=== PATIENT | female | born 1970 | race Caucasian/White ===

== ENCOUNTER 2017-04-20 10:37 | Emergency (ER) | payer SELFPAY ==
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
--- NOTE | 2017-04-20 11:55 | RADIOLOGY REPORT (SQ) ---
EXAM DESCRIPTION: WRIST RIGHT 3 VIEWS COMPLETED DATE/TIME: 04/20/2017 11:45 am REASON FOR STUDY: twist injury COMPARISON: None. NUMBER OF VIEWS: Three views. TECHNIQUE: AP, lateral, and oblique radiographic images acquired of the right wrist. LIMITATIONS: None. FINDINGS: MINERALIZATION: Normal. BONES: No acute fracture or dislocation. No worrisome bone lesions. Normal alignment. SOFT TISSUES: No soft tissue swelling. No foreign body. OTHER: No other significant finding. IMPRESSION: NEGATIVE STUDY OF THE RIGHT WRIST. NO RADIOGRAPHIC EVIDENCE OF ACUTE INJURY. TECHNICAL DOCUMENTATION: JOB ID: [id number] [employer]- All Rights Reserved
--- NOTE | 2017-04-20 11:58 | RADIOLOGY REPORT (SQ) ---
EXAM DESCRIPTION: L SPINE WHOLE COMPLETED DATE/TIME: 04/20/2017 11:45 am REASON FOR STUDY: lumbar pain, fell COMPARISON: November 2014 NUMBER OF VIEWS: Five views including obliques. TECHNIQUE: AP, lateral, oblique, and sacral radiographic images acquired of the lumbar spine. LIMITATIONS: None. FINDINGS: MINERALIZATION: Normal. SEGMENTATION: Normal. No transitional anatomy. ALIGNMENT: Normal. VERTEBRAE: Maintained height. No fracture or worrisome bone lesion. DISCS: Preserved height. No significant osteophytes or end plate irregularity. POSTERIOR ELEMENTS: Pedicles and facets are intact. No pars defect or posterior arch defects. HARDWARE: None in the spine. PARASPINAL SOFT TISSUES: Normal. PELVIS: Intact as visualized. No fractures or worrisome bone lesions. SI joints intact. OTHER: Calcific densities are identified projected over the left renal contour which have the appeara nce of renal calculi. Surgical clips are identified in the right upper quadrant. IMPRESSION: NORMAL 5 VIEW LUMBAR SPINE. TECHNICAL DOCUMENTATION: JOB ID: [id number] [employer]- All Rights Reserved
[2017-04-20] MEDS ORDERED: IBUPROFEN 800 MG TABLET PO ONE (12:45)
[2017-04-20 13:08] VITALS: BP 109/72
== END 2017-04-20 13:08 | disposition home or self-care (01) ==
LOC: ER 10:37
DX: S63.509A Unspecified sprain of unspecified wrist, initial encounter (principal); X58.XXXA Exposure to other specified factors, initial encounter; M67.431 Ganglion, right wrist; G89.29 Other chronic pain; M54.5 Low back pain; R20.2 Paresthesia of skin; M25.531 Pain in right wrist; F17.200 Nicotine dependence, unspecified, uncomplicated
CPT/HCPCS: 99283; 72110; 73110; L3908

== ENCOUNTER 2017-08-08 12:43 | Emergency (ER) | payer OTHER ==
[2017-08-08 13:26] VITALS: BP 115/72
[2017-08-08] MEDS ORDERED: CYCLOBENZAPRINE HCL 10 MG TABLET PO ONE (14:37)
[2017-08-08] MEDS ORDERED: IBUPROFEN 800 MG TABLET PO ONE (14:37)
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
== END 2017-08-08 14:44 | disposition home or self-care (01) ==
LOC: ER 12:43
DX: M54.2 Cervicalgia (principal); M54.5 Low back pain; F17.200 Nicotine dependence, unspecified, uncomplicated; V89.2XXA Person injured in unspecified motor-vehicle accident, traffic, initial encounter
CPT/HCPCS: 99283

== ENCOUNTER 2017-11-15 17:51 | Emergency (ER) | payer OTHER ==
--- NOTE | 2017-11-15 18:32 | ER Document Report ---
ED ENT - General Chief Complaint: Sore Throat Stated Complaint: SORE THROAT Time Seen by Provider: 11/15/17 18:14 Mode of Arrival: Ambulatory Information source: Patient Notes: 46-year-old female presented ED for complaint of sore throat 2 weeks. She states she has not had any fever but she has had chills. She states she is also had cough cold congestion. Patient is alert oriented respirations even unlabored no acute distress at this time. Pupils are equal and react to light, she is able to speak in full sentences, and walk with a even steady gait. TRAVEL OUTSIDE OF THE [place] IN LAST 30 DAYS: No - HPI Patient complains to provider of: Nose problem, Throat problem. No: Ear problem Onset: Other - 2 weeks Onset/Duration: Intermittent Severity: Moderate Pain Level: 3 Context: Recent Illness Location of pain: Nose, Sinus, Throat Associated symptoms: Runny nose, Sinus pain, Sinus drainage, Sore throat, Swollen glands Similar symptoms previously: Yes Recently seen / treated by doctor: No - Related Data Allergies/Adverse Reactions: acetaminophen [From Tylenol] Allergy (Verified 11/15/17 17:59) Past Medical History - General Information source: Patient - Social History Smoking Status: Current Every Day Smoker Cigarette use (# per day): Yes - 6-10 Chew tobacco use (# tins/day): No Smoking Education Provided: Yes - 4 min Frequency of alcohol use: Rare Drug Abuse: None 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 Lives with: Family Family History: Reviewed & Not Pertinent Patient has suicidal ideation: No Patient has homicidal ideation: No - Past Medical History Cardiac Medical History: Reports: None Pulmonary Medical History: Reports: None EENT Medical History: Reports: None Neurological Medical History: Reports: Hx Migraine Endocrine Medical History: Reports: None Renal/ Medical History: Reports: None Malignancy Medical History: Reports: None GI Medical History: Reports: None Musculoskeltal Medical History: Reports Hx Fibromyalgia, Reports Hx Musculoskeletal Trauma Skin Medical History: Reports None Psychiatric Medical History: Reports: Hx Anxiety, Hx Depression Traumatic Medical History: Reports: None Infectious Medical History: Reports: None Past Surgical History: Reports: Hx Cholecystectomy, Hx Hysterectomy, Hx Orthopedic Surgery - right knee - Immunizations Immunizations up to date: Yes Review of Systems - Review of Systems Constitutional: No symptoms reported EENT: Nose discharge, Sinus pressure, Sinus discharge, Throat pain, Other - Swollen lymph nodes Cardiovascular: No symptoms reported Respiratory: No symptoms reported Gastrointestinal: No symptoms reported Genitourinary: No symptoms reported Female Genitourinary: No symptoms reported Musculoskeletal: No symptoms reported Skin: No symptoms reported Hematologic/Lymphatic: No symptoms reported Neurological/Psychological: No symptoms reported -: Yes All other systems reviewed and negative Physical Exam - Vital signs Vitals: Temp Pulse Resp BP Pulse Ox 99.0 F 73 16 117/83 97 11/15/17 17:58 11/15/17 17:58 11/15/17 17:58 11/15/17 17:58 11/15/17 17:58 Interpretation: Normal - General General appearance: Appears well, Alert - HEENT Head: Normocephalic, Atraumatic Eyes: Normal Pupils: PERRL Ears: Normal External canal: Normal Tympanic membrane: Normal Sinus: Normal Nasal: Normal, Purulent discharge, Swelling Mouth/Lips: Normal Mucous membranes: Normal Pharynx: Erythema, Post nasal drainage. No: Exudate, Retropharyngeal abscess, Tonsillar hypertrophy, Uvular edema, Potential airway comprom. Neck: Anterior cervical chain - Respiratory Respiratory status: No respiratory distress Chest status: Nontender Breath sounds: Nonproductive cough Chest palpation: Normal - Cardiovascular Rhythm: Regular Heart sounds: Normal auscultation Murmur: No - Abdominal Inspection: Normal Distension: No distension Bowel sounds: Normal Tenderness: Nontender Organomegaly: No organomegaly - Back Back: Normal, Nontender - Extremities General upper extremity: Normal inspection, Nontender, Normal color, Normal ROM , Normal temperature General lower extremity: Normal inspection, Nontender, Normal color, Normal ROM , Normal temperature, Normal weight bearing. No: Paulina's sign - Neurological Neuro grossly intact: Yes Cognition: Normal Orientation: AAOx4 [place] Coma Scale Eye Opening: Spontaneous Shay Coma Scale Verbal: Oriented Shay Coma Scale Motor: Obeys Commands Caldwell Coma Scale Total: 15 Speech: Normal Motor strength normal: LUE, RUE, LLE, RLE Sensory: Normal - Psychological Associated symptoms: Normal affect, Normal mood - Skin Skin Temperature: Warm Skin Moisture: Dry Skin Color: Normal Course - Re-evaluation Re-evalutation: 11/15/17 21:14 After performing a Medical Screening Examination, I estimate there is LOW risk for ACUTE CORONARY SYNDROME, RESPIRATORY FAILURE, SEPSIS OR MENINGITIS, thus I consider the discharge disposition reasonable. I have reevaluated this patient multiple times and no significant life threatening changes are noted. The patient and I have discussed the diagnosis and risks, and we agree with discharging home with close follow-up. We also discussed returning to the Emergency Department immediately if new or worsening symptoms occur. We have discussed the symptoms which are most concerning (e.g., changing or worsening pain, trouble swallowing or breathing, neck stiffness, fever) that necessitate immediate return. - Vital Signs Vital signs: Temp Pulse Resp BP Pulse Ox 97.9 F 67 16 130/78 H 97 11/15/17 19:12 11/15/17 19:12 11/15/17 19:12 11/15/17 19:12 11/15/17 19:12 Discharge - Discharge Clinical Impression: Viral sore throat URI (upper respiratory infection) Qualifiers: URI type: unspecified URI Qualified Code(s): J06.9 - Acute upper respiratory infection, unspecified Condition: Stable Disposition: HOME, SELF-CARE Additional Instructions: SORE THROAT: Sore throats may be caused by viruses, bacteria, or fungi. Most are due to a virus, and must get better on their own. Bacterial sore throats, particularly those due to "strep," need treatment with antibiotics. If an antibiotic is prescribed, be sure to take the medication for a full 10 days. Failure to take the antibiotic can result in complications such as rheumatic fever. Sometimes, an injection of antibiotics is given instead of pills or liquid. This single "shot" is equal in effectiveness to the oral medication. To relieve symptoms, take acetaminophen for pain. Sip clear liquids frequently, or eat popsicles or ice chips. Anesthetic sprays or lozenges may help. Make sure the air in the room is not too dry. Avoid using decongestants or antihistamines. Call the doctor if there is no improvement in two days, or if you have difficulty breathing, increasing throat pain, high fever, rash, or frequent vomiting. UPPER RESPIRATORY ILLNESS: You have a viral infection of the respiratory passages -- a "cold." This common infection causes nasal congestion, drainage, and often sore throat and cough. It is highly contagious. The disease usually lasts about 10 to 14 days. There is no "cure" for the viral infection -- it must run its course. If there is a complication, such as bacterial infection in the nose, sinuses, middle ear, or bronchial tubes, antibiotics may be required. The antibiotics won't affect the virus. Drink plenty of fluids. A humidifier may help. An expectorant medication or decongestant may make you more comfortable. Use acetaminophen or ibuprofen for fever or aches. See the doctor if fever persists over two days, if there is any significant worsening of your symptoms, or if you simply fail to improve as expected. USE OF ACETAMINOPHEN (Tylenol): Acetaminophen may be taken for pain relief or fever control. It's much safer than aspirin, offering a wider range of "safe" dosages. It is safe during . Some brand names are Tylenol, Panadol, Datril, Anacin 3, Tempra, and Liquiprin. Acetaminophen can be repeated every four hours. The following are maximum recommended dosages: >89 pounds or adults 650 mg to 900 mg Acetaminophen can be repeated every four hours. Maximum dose not to exceed 4000 mg a day. SMOKING: If you smoke, you should stop smoking. The tar and chemicals in cigarette smoke are harmful. Smoking has been shown to cause: emphysema chronic bronchitis lung cancer mouth and throat cancer stomach and pancreas cancer premature aging defects In addition, smoking increases ear and lung infections in children of smokers. Salt and soda solution 1 quart of water 1 tablespoon of salt 1 teaspoon of baking soda Mixed 3 ingredients together and boil for 1 minute Placed in a covered quart jar Use 1/2 ounce of cold solution to gargle 3 times a day FOLLOW-UP CARE: If you have been referred to a physician for follow-up care, call the physician s office for an appointment as you were instructed or within the next two days. If you experience worsening or a significant change in your symptoms, notify the physician immediately or return to the Emergency Department at any time for re-evaluation. Forms: Smoking Cessation Education, Return to Work Referrals: ISIDORO VALADEZ DO [Primary Care Provider] - Follow up in 3-5 days
[2017-11-15 19:13] VITALS: BP 130/78
== END 2017-11-15 19:13 | disposition home or self-care (01) ==
LOC: ER 17:51
DX: J02.8 Acute pharyngitis due to other specified organisms (principal); B97.89 Other viral agents as the cause of diseases classified elsewhere; R68.83 Chills (without fever); R05 Cough; J34.89 Other specified disorders of nose and nasal sinuses; R09.82 Postnasal drip; F17.210 Nicotine dependence, cigarettes, uncomplicated; Z71.6 Tobacco abuse counseling; Z88.6 Allergy status to analgesic agent
CPT/HCPCS: 87070; 87880; 99283; 99406

== ENCOUNTER 2018-02-17 18:23 | Emergency (ER) | payer OTHER ==
--- NOTE | 2018-02-17 20:21 | ER Document Report ---
ED Respiratory Problem - General Chief Complaint: Cough Stated Complaint: COUGH, FEVER Time Seen by Provider: 02/17/18 19:17 Mode of Arrival: Ambulatory Information source: Patient Notes: 47-year-old female presents to ED for complaint of cough congestion productive cough with low-grade fever. She states she has had this cough for about 3 weeks. She states she has been taken [id number] medications and has not been able to get in to see the doctor. She states she needs a chest x-ray debonded with going on. Patient is alert and oriented respirations are regular and unlabored with clear sounds. She is afebrile while in the emergency room. She does speak with full sentences and walks with a even steady gait. TRAVEL OUTSIDE OF THE [place] IN LAST 30 DAYS: No - HPI Patient complains to provider of: Cough, Short of breath Onset: Other Duration: Continuous - 3 weeks Initiating Event: URI Quality of pain: Achy Severity: Moderate Pain Level: 3 Context: Smoker Short of Breath: Severe Cough: Productive Sputum amount: None Associated symptoms: Chills, Congestion, Cough, Fever, PND, Runny nose, Sinus pain/pressure Similar symptoms previously: Yes Recently seen / treated by doctor: No - Related Data Allergies/Adverse Reactions: acetaminophen [From Tylenol] Allergy (Verified 11/15/17 17:59) Past Medical History - General Information source: Patient - Social History Smoking Status: Current Every Day Smoker Cigarette use (# per day): Yes - 1/2 ppd Chew tobacco use (# tins/day): No Smoking Education Provided: Yes - 4min Frequency of alcohol use: None Drug Abuse: None 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 Lives with: Family Family History: Reviewed & Not Pertinent Patient has suicidal ideation: No Patient has homicidal ideation: No - Past Medical History Cardiac Medical History: Reports: None Pulmonary Medical History: Reports: None EENT Medical History: Reports: None Neurological Medical History: Reports: Hx Migraine Endocrine Medical History: Reports: None Renal/ Medical History: Reports: None Malignancy Medical History: Reports: None GI Medical History: Reports: None Musculoskeletal Medical History: Reports Hx Fibromyalgia, Reports Hx Musculoskeletal Trauma Skin Medical History: Reports None Psychiatric Medical History: Reports: Hx Anxiety, Hx Depression Traumatic Medical History: Reports: None Infectious Medical History: Reports: None Past Surgical History: Reports: Hx Cholecystectomy, Hx Hysterectomy, Hx Orthopedic Surgery - right knee - Immunizations Immunizations up to date: Yes Review of Systems - Review of Systems Constitutional: No symptoms reported EENT: No symptoms reported Cardiovascular: No symptoms reported Respiratory: Short of breath Gastrointestinal: No symptoms reported Genitourinary: No symptoms reported Female Genitourinary: No symptoms reported Musculoskeletal: No symptoms reported Skin: No symptoms reported Hematologic/Lymphatic: No symptoms reported Neurological/Psychological: No symptoms reported -: Yes All other systems reviewed and negative Physical Exam - Vital signs Vitals: Temp 98.8 F 02/17/18 18:27 Interpretation: Normal - General General appearance: Appears well, Alert - HEENT Head: Normocephalic, Atraumatic Eyes: Normal Pupils: PERRL - Respiratory Respiratory status: No respiratory distress Chest status: Nontender Breath sounds: Normal Chest palpation: Normal - Cardiovascular Rhythm: Regular Heart sounds: Normal auscultation Murmur: No - Abdominal Inspection: Normal Distension: No distension Bowel sounds: Normal Tenderness: Nontender Organomegaly: No organomegaly - Back Back: Normal, Nontender - Extremities General upper extremity: Normal inspection, Nontender, Normal color, Normal ROM , Normal temperature General lower extremity: Normal inspection, Nontender, Normal color, Normal ROM , Normal temperature, Normal weight bearing. No: Paulina's sign - Neurological Neuro grossly intact: Yes Cognition: Normal Orientation: AAOx4 [place] Coma Scale Eye Opening: Spontaneous [place] Coma Scale Verbal: Oriented Shay Coma Scale Motor: Obeys Commands Shay Coma Scale Total: 15 Speech: Normal Motor strength normal: LUE, RUE, LLE, RLE Sensory: Normal - Psychological Associated symptoms: Normal affect, Normal mood - Skin Skin Temperature: Warm Skin Moisture: Dry Skin Color: Normal Course - Re-evaluation Re-evalutation: 02/18/18 02:22 X-ray discussed with patient. Patient had a left lower lobe pneumonia. Patient was started on Levaquin and discharged home with prescription for Levaquin. 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 She is instructed to follow-up with her primary doctor. - Vital Signs Vital signs: Temp Pulse Resp BP Pulse Ox 98.4 F 70 16 116/72 98 02/17/18 21:03 02/17/18 21:03 02/17/18 21:03 02/17/18 21:02/17/18 21:03 - Diagnostic Test Radiology reviewed: Image reviewed, Reports reviewed Discharge - Discharge Clinical Impression: Left lower lobe pneumonia Qualifiers: Pneumonia type: due to unspecified organism Qualified Code(s): J18.1 - Lobar pneumonia, unspecified organism Condition: Stable Disposition: HOME, SELF-CARE Additional Instructions: PNEUMONIA: Your examination indicates that you have pneumonia. This is an infection of the lung tissue, usually caused by bacteria or a virus. Symptoms include cough, fever, shaking chills, chest pain, shortness of breath, and coughing up bloody sputum. Treatment for bacterial pneumonia includes rest, antibiotics for 10 to 14 days, increasing your clear liquid intake, a cool mist humidifier at your bedside, and fever medication. Often, a repeat chest X-ray is performed in a few weeks--even if you feel better--to ascertain whether the infection has completely resolved and no underlying lung problem is present. You should call the physician if you develop persistent vomiting, high fever that does not respond to fever medication, increasing shortness of breath , confusion, or lethargy. Also, failure to improve within two to three days is an indication for re-examination. LEVOFLOXACIN: You have been given an antibacterial agent, levofloxacin (Levaquin). This medicine is not related to the penicillins, sulfas, cephalosporins, or tetracyclines. It is often given to patients who are allergic to these drugs. It has been chosen for you either because other drugs are not appropriate, or because of the nature of your problem. Levaquin should not be taken with antacids, as these can decrease its effectiveness. It can be taken without regard to meals. LEVAQUIN SHOULD NOT BE TAKEN BY CHILDREN, NURSING WOMEN, OR WOMEN. Although Levaquin is usually well-tolerated, common side effects can include nausea and diarrhea. Contact your doctor if you experience any unusual symptoms while on this medication, such as joint pain or swelling, shortness of breath, wheezing, faintness, or hives. FOLLOW-UP CARE: If you have been referred to a physician for follow-up care, call the physician s office for an appointment as you were instructed or within the next two days. If you experience worsening or a significant change in your symptoms, notify the physician immediately or return to the Emergency Department at any time for re-evaluation. Prescriptions: Levofloxacin [Levaquin 500 mg Tablet] 500 mg PO DAILY #10 tablet Forms: Return to Work Referrals: ISIDORO VALADEZ DO [Primary Care Provider] - Follow up as needed
--- NOTE | 2018-02-17 20:30 | RADIOLOGY REPORT (SQ) ---
EXAM DESCRIPTION: CHEST 2 VIEWS COMPLETED DATE/TIME: 02/17/2018 8:21 pm REASON FOR STUDY: cough congestion fever COMPARISON: 03/18/2011 EXAM PARAMETERS: NUMBER OF VIEWS: two views TECHNIQUE: Digital Frontal and Lateral radiographic views of the chest acquired. RADIATION DOSE: NA LIMITATIONS: none FINDINGS: LUNGS AND PLEURA: Parenchymal opacity at the left base. Right lung is clear. Superimpose d on COPD. MEDIASTINUM AND HILAR STRUCTURES: No masses or contour abnormalities. HEART AND VASCULAR STRUCTURES: Heart normal size. No evidence for failure. BONES: No acute findings. HARDWARE: None in the chest. OTHER: No other significant finding. IMPRESSION: Left basilar pneumonia. TECHNICAL DOCUMENTATION: JOB ID: [id number] [employer]- All Rights Reserved Reading location - IP/workstation name: [email or web address]
[2018-02-17] MEDS ORDERED: LEVOFLOXACIN 500 MG TABLET PO ONE (20:49)
[2018-02-17 21:05] VITALS: BP 116/72
== END 2018-02-17 21:03 | disposition home or self-care (01) ==
LOC: ER 18:23
DX: J18.1 Lobar pneumonia, unspecified organism (principal); R50.9 Fever, unspecified; F17.200 Nicotine dependence, unspecified, uncomplicated; Z88.6 Allergy status to analgesic agent
CPT/HCPCS: 71046; 99283; 99406

== ENCOUNTER 2018-03-17 09:11 | Emergency (ER) | payer OTHER ==
[2018-03-17 09:16] VITALS: BP 120/76
--- NOTE | 2018-03-17 09:35 | ER Document Report ---
HPI - HPI Pain Level: 2 Notes: Patient presents with chief complaint of right hand pain, increased pain to the third digit. Patient reports pain with movement. Patient reports that she tripped 1 day ago and hit her hand on a tree. - REPRODUCTIVE Reproductive: DENIES: : Past Medical History - General Information source: Patient - Social History Smoking Status: Never Smoker Family History: Reviewed & Not Pertinent Neurological Medical History: Reports: Hx Migraine Endocrine Medical History: Denies: Hx Diabetes Mellitus Type 2 Renal/ Medical History: Denies: Hx Peritoneal Dialysis GI Medical History: Denies: Hx Gastroesophageal Reflux Disease Musculoskeletal Medical History: Reports Hx Fibromyalgia, Reports Hx Musculoskeletal Trauma Psychiatric Medical History: Reports: Hx Anxiety, Hx Depression Past Surgical History: Reports: Hx Cholecystectomy, Hx Hysterectomy, Hx Orthopedic Surgery - right knee - Immunizations Immunizations up to date: Yes Vertical Provider Document - CONSTITUTIONAL Notes: PHYSICAL EXAMINATION: GENERAL: Well-appearing, well-nourished and in no acute distress. HEAD: Atraumatic, normocephalic. EYES: Pupils equal round extraocular movements intact, conjunctiva are normal. ENT: Nares patent NECK: Normal range of motion LUNGS: No respiratory distress Musculoskeletal: Normal range of motion. Swelling and erythema noted to left hand, increased over the third knuckle. Cap refill less than 3 seconds, normal pulses. Normal sensation distal to area of concern. NEUROLOGICAL: Normal speech, normal gait. PSYCH: Normal mood, normal affect. SKIN: Warm, Dry, normal turgor, no rashes or lesions noted. - INFECTION CONTROL TRAVEL OUTSIDE OF THE [place] IN LAST 30 DAYS: No Course - Re-evaluation Re-evalutation: Patient does have swelling noted to the right hand however she does not have any acute fracture or dislocation on x-ray. Attempted to place patient in a splint for comfort however patient was unable to tolerate that. Will give patient a sling. Will refer patient to orthopedics and provide analgesics. Patient is agreeable to this plan. - Vital Signs Vital signs: Temp Pulse Resp BP Pulse Ox 98.0 F 74 14 120/76 98 03/17/18 09:15 03/17/18 09:15 03/17/18 09:15 03/17/18 09:15 03/17/18 09:15 Discharge - Discharge Clinical Impression: Peripheral nerve contusion Condition: Stable Disposition: HOME, SELF-CARE Additional Instructions: Your x-ray today was negative for any acute fractures or dislocations. Based upon your symptoms you could have damaged either the nerve or tendon. Please take ibuprofen 600 mg every 6 hours. Use your home pain medication as well. Please follow-up with orthopedics, call them this week to schedule an appointment for follow-up. Continue to ice and elevate your extremity. Referrals: ISIDORO VALADEZ DO [Primary Care Provider] - Follow up as needed SCOTT SANCHEZ DO [ACTIVE STAFF] - Follow up as needed
--- NOTE | 2018-03-17 09:58 | RADIOLOGY REPORT (SQ) ---
EXAM DESCRIPTION: HAND RIGHT 3 VIEWS COMPLETED DATE/TIME: 03/17/2018 9:32 am REASON FOR STUDY: Right hand injury tree hit hand COMPARISON: None. EXAM PARAMETERS: NUMBER OF VIEWS: Three views. TECHNIQUE: AP, lateral and oblique radiographic images acquired of the right hand. LIMITATIONS: None. FINDINGS: MINERALIZATION: Normal. BONES: No acute fracture or dislocation. No worrisome bone lesions. JOINTS: No effusions. SOFT TISSUES: Third finger soft tissue swelling. No foreign body. OTHER: No other significant finding. IMPRESSION: SOFT TISSUE SWELLING THIRD FINGER NO FRACTURE TECHNICAL DOCUMENTATION: JOB ID: [id number] [employer]- All Rights Reserved Reading location - IP/workstation name: [email or web address]
[2018-03-17] MEDS ORDERED: KETOROLAC TROMETHAMINE 60 MG/2 ML SDV IM ONE (10:17)
== END 2018-03-17 11:00 | disposition home or self-care (01) ==
LOC: ER 09:11
DX: T14.8XXA Other injury of unspecified body region, initial encounter (principal); M79.641 Pain in right hand; W22.09XA Striking against other stationary object, initial encounter; Z90.49 Acquired absence of other specified parts of digestive tract; Z90.710 Acquired absence of both cervix and uterus
CPT/HCPCS: 99283; 96372; 73130; L3908; J1885

== ENCOUNTER 2018-03-18 13:35 | Emergency (ER) | payer OTHER ==
[2018-03-18 14:14] VITALS: BP 147/96
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
[2018-03-18] MEDS ORDERED: HYDROCODONE/ACETAMINOPHEN 5-325 MG TABLET PO ONE (15:35)
== END 2018-03-18 15:58 | disposition left against medical advice (07) ==
LOC: ER 13:35
DX: M79.641 Pain in right hand (principal); F17.210 Nicotine dependence, cigarettes, uncomplicated; W19.XXXA Unspecified fall, initial encounter
CPT/HCPCS: 99281

== ENCOUNTER → 2018-04-03 | Outpatient (CLI) | payer OTHER ==
--- NOTE | 2018-04-03 14:06 | RADIOLOGY REPORT (SQ) ---
EXAM DESCRIPTION: MRI RT UPPER EXTREMITY WITHOUT COMPLETED DATE/TIME: 04/03/2018 1:15 pm REASON FOR STUDY: L03.011 CELLULITIS OF RIGHT FINGER L03.011 CELLULITIS OF RIGHT FINGER COMPARISON: None. TECHNIQUE: Multiplanar imaging of the right hand to include fat and fluid sensitive sequences. LIMITATIONS: None. FINDINGS: BONE MARROW: Abnormal decreased T1 and increased T2 signal in the 3rd metacarpal and base of the proximal 3rd phalanx. SOFT TISSUES: Adjacent cellulitis. There is a 3rd metacarpal phalangeal joint effusion. OTHER: No other significant finding. IMPRESSION: Osteomyelitis 3rd metacarpal and base of the proximal 3rd phalanx. Joint effusion could indicate septic arthritis. TECHNICAL DOCUMENTATION: JOB ID: [id number] [employer]- All Rights Reserved Reading location - IP/workstation name: [email or web address]
== END ==
LOC: RAD 13:57
PROVIDERS: ATTEND Orthopaedic Surgery
DX: L03.011 Cellulitis of right finger (principal); M86.8X4 Other osteomyelitis, hand

== ENCOUNTER → 2018-04-10 | Outpatient (CLI) | payer OTHER ==
[2018-04-10 17:23] LABS: ABSOLUTE BASOPHILS # (AUTO) 0.1 10^3/uL (0.0-0.2); ABSOLUTE EOSINOPHILS # (AUTO) 0.1 10^3/uL (0.0-0.6); ABSOLUTE LYMPHOCYTES (AUTO) 3.1 10^3/uL (0.5-4.7); ABSOLUTE MONOCYTES (AUTO) 0.5 10^3/uL (0.1-1.4); BASOPHILS % (AUTO) 0.7 % (0-2); EOSINOPHILS % (AUTO) 1.3 % (0-6); HEMATOCRIT 41.3 % (36.0-47.0); HEMOGLOBIN 14.2 g/dL (12.0-15.5); LYMPHOCYTES % (AUTO) 39.4 % (13-45); MEAN CORPUSCULAR HEMOGLOBIN 29.9 pg (27.0-33.4); MEAN CORPUSCULAR HGB CONC 34.4 g/dL (32.0-36.0); MEAN CORPUSCULAR VOLUME 87 fl (80-97); PLATELET COUNT 378 10^3/uL (150-450); RED BLOOD COUNT 4.75 10^6/uL (3.72-5.28); RED CELL DISTRIBUTION WIDTH 13.1 % (11.5-14.0); SEGMENTED NEUTROPHILS % (AUTO) 51.6 % (42-78); TOTAL CELLS COUNTED % (AUTO) 100 %; WHITE BLOOD COUNT 7.8 10^3/uL (4.0-10.5)
[2018-04-10 17:41] LABS: URIC ACID 3.6 mg/dL (2.5-7.5)
[2018-04-10 17:48] LABS: C-REACTIVE PROTEIN < 5.0 mg/L (<10.0)
[2018-04-10 18:00] LABS: ERYTHROCYTE SEDIMENTATION RATE 18 mm/hr (0-20)
[2018-04-13 17:50] LABS: CYCLIC CITRUL PEPTIDE IGG/A AB 7 units (0-19)
== END ==
LOC: OD 16:50
PROVIDERS: ATTEND Orthopaedic Surgery
DX: M79.641 Pain in right hand (principal); M25.50 Pain in unspecified joint; M86.9 Osteomyelitis, unspecified
CPT/HCPCS: 36415; 84550; 85025; 85652; 86038; 86140; 86200; 86431

== ENCOUNTER 2018-04-15 10:00 | Inpatient (IN) | payer OTHER ==
[~2018-04-15 10:00] MED LIST: BACITRACIN INJ 50,000 UNIT VIAL ONE; BUPIVACAINE HCL 0.5 % INJ/PF 30 ML SDV ONE; LIDOCAINE 1% INJ-PF (10 MG/ML) 30 ML SDV ONE
[2018-04-15] MEDS ORDERED: DEXAMETHASONE SOD PHOSPHATE INJ 4 MG/1 ML VIAL ONE (10:17)
[2018-04-15] MEDS ORDERED: ONDANSETRON HCL INJ/PF 4 MG/2 ML SDV ONE (10:17)
[2018-04-15 10:33] LABS: HEMATOCRIT 41.7 % (36.0-47.0); HEMOGLOBIN 14.6 g/dL (12.0-15.5); MEAN CORPUSCULAR HEMOGLOBIN 30.4 pg (27.0-33.4); MEAN CORPUSCULAR HGB CONC 34.9 g/dL (32.0-36.0); MEAN CORPUSCULAR VOLUME 87 fl (80-97); PLATELET COUNT 298 10^3/uL (150-450); RED BLOOD COUNT 4.79 10^6/uL (3.72-5.28); RED CELL DISTRIBUTION WIDTH 13.3 % (11.5-14.0); WHITE BLOOD COUNT 6.1 10^3/uL (4.0-10.5)
[2018-04-15 10:40] LABS: APPEARANCE,URINE CLOUDY; BILIRUBIN,URINE NEGATIVE (NEGATIVE); COLOR,URINE YELLOW; GLUCOSE, URINE NEGATIVE (NEGATIVE); KETONES,URINE NEGATIVE (NEGATIVE); LEUKOCYTE ESTERASE,URINE MODERATE (NEGATIVE); NITRITE,URINE NEGATIVE (NEGATIVE); PROTEIN,URINE NEGATIVE (NEGATIVE); URINE SPECIFIC GRAVITY 1.011; UROBILINOGEN,URINE NEGATIVE mg/dL (<2.0)
[2018-04-15 10:56] LABS: ANION GAP 6 (5-19); BLOOD UREA NITROGEN 9 mg/dL (7-20); CALCIUM 9.4 mg/dL (8.4-10.2); CARBON DIOXIDE 25 mmol/L (22-30); CHLORIDE 110 mmol/L (98-107); GLUCOSE 93 mg/dL (75-110); POTASSIUM 4.5 mmol/L (3.6-5.0); SODIUM 141.3 mmol/L (137-145)
--- NOTE | 2018-04-15 11:01 | RADIOLOGY REPORT (SQ) ---
EXAM DESCRIPTION: CHEST SINGLE VIEW COMPLETED DATE/TIME: 04/15/2018 10:50 am REASON FOR STUDY: PREOP COMPARISON: 02/17/2018 EXAM PARAMETERS: NUMBER OF VIEWS: One view. TECHNIQUE: Single frontal radiographic view of the chest acquired. RADIATION DOSE: NA LIMITATIONS: None. FINDINGS: LUNGS AND PLEURA: Interval resolution left base pneumonia. No acute pulmonary findings. Very small stable calcified granuloma right upper lung. No pneumothorax or pleural effusion. MEDIASTINUM AND HILAR STRUCTURES: No masses. Contour normal. HEART AND VASCULAR STRUCTURES: Heart normal in size. Normal vasculature. BONES: No acute findings. HARDWARE: None in the chest. OTHER: No other significant finding. IMPRESSION: 1. Interval resolution of left base pneumonia since the prior study dated 02/17/2018. 2. No acute pulmonary findings. TECHNICAL DOCUMENTATION: JOB ID: [id number] [employer]- All Rights Reserved Reading location - IP/workstation name: [email or web address]
[2018-04-15] MEDS ORDERED: FENTANYL CITRATE INJ/PF 100 MCG/2 ML AMPUL ONE (11:29)
[2018-04-15] MEDS ORDERED: PROPOFOL INJ 200 MG/20 ML VIAL IV ONE (11:30)
[2018-04-15] MEDS ORDERED: MIDAZOLAM 2 MG/2 ML INJ ONE (11:30)
[2018-04-15] MEDS ORDERED: EPHEDRINE SULFATE INJ 50 MG/1 ML AMPULE ONE (12:13)
[2018-04-15] MEDS ORDERED: CLINDAMYCIN PHOSPHATE INJ 300 MG/2 ML SDV ONE (12:16)
[2018-04-15] MEDS ORDERED: FENTANYL CITRATE INJ/PF 100 MCG/2 ML AMPUL IV PRN ×3 (12:27)
[2018-04-15] MEDS ORDERED: DIPHENHYDRAMINE HCL 50 MG/ML VIAL IV PRN (12:27)
[2018-04-15] MEDS ORDERED: ONDANSETRON HCL INJ/PF 4 MG/2 ML SDV IV PRN ×2 (12:27→12:57)
[2018-04-15] MEDS ORDERED: MEPERIDINE HCL/PF INJ 25 MG/1 ML DISP.SYRIN IV PRN (12:27)
[2018-04-15] MEDS ORDERED: MORPHINE SULFATE 10 MG/ML INJ IV PRN (12:27)
[2018-04-15] MEDS ORDERED: PROMETHAZINE HCL INJ 25 MG/1 ML VIAL IV PRN ×2 (12:27)
--- NOTE | 2018-04-15 12:51 | Operative Report ---
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 Osteomyelitis third proximal phalanx, metacarpal head POSTOPERATIVE DIAGNOSIS: Same OPERATION: Irrigation and excisional debridement including third MCP joint, bone of the proximal phalanx/metacarpal head with partial synovectomy, capsulectomy third MCP joint SURGEON: SCOTT SANCHEZ ANESTHESIA: GA TISSUE REMOVED OR ALTERED: Aerobic/anaerobic/AFB/fungal cultures. Bone/soft tissue to pathology COMPLICATIONS: None ESTIMATED BLOOD LOSS: Minimal PROCEDURE: Indication for above procedure: 47-year-old female who sustained a cut to her third MCP joint. She was unaware of injury severity then developed redness and swelling of the right hand. She was treated for cellulitis of the patient's condition worsened along with her pain and limited motion. MRI was then obtained demonstrating possible chronic septic joint with osteomyelitis of the proximal phalanx and MCP joint. She was then sent to me at which point we discussed treatment options I recommended operative intervention. Postoperative expectations and outcomes were explained patient verbalized understanding consented for the procedure. Procedure In Detail: Patient was seen and evaluated in the preoperative holding area. The RIGHT upper extremity was initialized and marked. Patient received 600 mg of clindamycin after cultures obtained. Patient was taken back to the operative room where transferred to the operative table and placed under general anesthesia. Once they were adequately anesthetized a nonsterile tourniquet was placed on the upper extremity. A surgical team debriefing was performed ensuring all instrumentation was available, the surgical procedure was discussed with possible concerns reviewed. The upper extremity was prepped with chlorhexidine and alcohol and draped in a sterile fashion. A timeout was done identifying correct patient, procedure and extremity everyone in attendance agree with this and verbalized no concerns. The extremity was elevated the tourniquet was inflated to 250 mmHg. Previous longitudinal skin incision over the MCP joint was utilized. Blunt dissection performed. Split within the extensor mechanism midline was made to approach the MCP joint. Once within the MCP joint there is significant synovitis noted partial synovectomy was performed. Preoperative range of motion was limited and thus capsulectomy along the dorsal aspect of the MP joint was performed to achieve full passive range of motion. No gross purulence within the MCP joint was appreciated. A curette was then placed within the third metacarpal head and proximal phalanx demonstrating significant bone softening along the metaphyseal region. The curette was then advanced distally up the shaft of the proximal phalanx and proximally along the shaft of the metacarpal. Bone was removed and sent to pathology and microbiology for aerobic/anaerobic/AFB and fungal cultures. The wound was then copiously irrigated with normal saline. Any remaining nonviable tissue was excised. Tourniquet was deflated. Any peripheral bleeding was controlled with bipolar cautery into the wound was dry. Extensor mechanism was closed with interrupted 3-0 Vicryl suture. Skin was closed with interrupted 4-0 nylon horizontal mattress suture. Wound was dressed with Xeroform 4 x 4's and 10 cc of 0.5% Marcaine without epinephrine was injected for postoperative pain control. Patient was placed in a soft dressing. Sponge counts, instrument counts, needle counts counts were correct. Patient was then awoken from anesthesia. Transferred from the operating room table to the operating room stretcher. There was no intraoperative complications patient tolerated procedure well stable to PACU. Postoperative plan: Patient will be admitted for IV antibiotics and PICC line placement. Once culture results and sensitivities are finalized she will be DC'd home on IV antibiotics if culture negative will consult ID for recommendations.
[2018-04-15] MEDS ORDERED: OXYCODONE-ACETAMINOPHEN 5-325 MG TABLET PO PRN (12:57)
[2018-04-15] MEDS: FENTANYL CITRATE INJ/PF 100 MCG/2 ML AMPUL ONE ×2 (13:13→13:22)
[2018-04-15] MEDS ORDERED: MORPHINE SULFATE 10 MG/ML INJ ONE (13:31)
--- NOTE | 2018-04-15 13:36 | EKG REPORT ---
SEVERITY:- ABNORMAL ECG - SINUS RHYTHM LEFT ANTERIOR FASCICULAR BLOCK POOR R WAVE PROGRESSION ANTERIOR LEADS. : Confirmed by: Vinicio Samson MD 15-Apr-2018 13:36:06
[2018-04-15] MEDS ORDERED: DIPHENHYDRAMINE HCL 50 MG/ML VIAL ONE (13:44)
--- NOTE | 2018-04-15 15:30 | Progress Note ---
Provider Note Provider Note: ID Consult Note- I was asked to review this case by the pharmacy at the request of Dr. Foster. The patient underwent surgical debridement of the finger earlier today by Dr. Foster. Tissue was sent to the Microbiology lab by Dr. Foster at the time of the procedure. All cultures and Gram stains are pending at this time. It appears that the patient should be treated for osteomyelitis, but it is not clear what antibiotics should be used. She may be able to be treated with oral antibiotics, but recommend IV antibiotics for now while awaiting culture results. She is currently receiving vancomycin and cefepime. These are reasonable for now pending the culture results. The patient should receive 6 weeks of antibiotics for the usual bacterial causes of osteomyelitis. She may need a longer course if this is a mycobacterial (e.g., Mycobacteria marinum) infection. . We will follow up the culture and pathology results. Willie Love MD Pager: [phone]
[2018-04-15] MEDS: HEPARIN SOD (PORCINE) 5,000 UNIT/ML 1 ML SYRINGE SUBCUT SCH ×2 (15:51→21:32)
[2018-04-15] MEDS: CEFEPIME 2 GM/D5W RTU 2 GM/50 ML RTUPB IV SCH (17:43)
[2018-04-15] MEDS ORDERED: VANCOMYCIN HCL INJ 1000 MG VIAL IV SCH (18:00)
[2018-04-15] MEDS: VANCOMYCIN HCL 1,250 MG in DEXTROSE 5%-WATER 250 ML IV SCH (18:33)
[2018-04-15] MEDS: MORPHINE SULFATE 10 MG/ML INJ IV PRN (20:31)
[2018-04-16] MEDS: CEFEPIME 2 GM/D5W RTU 2 GM/50 ML RTUPB IV SCH ×2 (05:09→17:51)
[2018-04-16] MEDS: HEPARIN SOD (PORCINE) 5,000 UNIT/ML 1 ML SYRINGE SUBCUT SCH ×3 (05:09→21:18)
[2018-04-16 05:37] LABS: ABSOLUTE BASOPHILS # (AUTO) 0.1 10^3/uL (0.0-0.2); ABSOLUTE MONOCYTES (AUTO) 0.8 10^3/uL (0.1-1.4); ABSOLUTE NEUT (AUTO) 8.9 10^3/uL (1.7-8.2); BASOPHILS % (AUTO) 0.8 % (0-2); EOSINOPHILS % (AUTO) 0.2 % (0-6); HEMATOCRIT 36.5 % (36.0-47.0); HEMOGLOBIN 12.8 g/dL (12.0-15.5); LYMPHOCYTES % (AUTO) 16.7 % (13-45); MEAN CORPUSCULAR HEMOGLOBIN 30.6 pg (27.0-33.4); MEAN CORPUSCULAR VOLUME 87 fl (80-97); MONOCYTES % (AUTO) 6.4 % (3-13); PLATELET COUNT 277 10^3/uL (150-450); RED BLOOD COUNT 4.19 10^6/uL (3.72-5.28); RED CELL DISTRIBUTION WIDTH 13.4 % (11.5-14.0); SEGMENTED NEUTROPHILS % (AUTO) 75.9 % (42-78); TOTAL CELLS COUNTED % (AUTO) 100 %; WHITE BLOOD COUNT 11.7 10^3/uL (4.0-10.5)
[2018-04-16] MEDS: VANCOMYCIN HCL 1,250 MG in DEXTROSE 5%-WATER 250 ML IV SCH ×2 (06:04→18:07)
[2018-04-16 06:06] LABS: ANION GAP 7 (5-19); BLOOD UREA NITROGEN 7 mg/dL (7-20); CALCIUM 9.3 mg/dL (8.4-10.2); CARBON DIOXIDE 24 mmol/L (22-30); CHLORIDE 109 mmol/L (98-107); GLUCOSE 118 mg/dL (75-110); POTASSIUM 4.1 mmol/L (3.6-5.0); SODIUM 139.7 mmol/L (137-145)
--- NOTE | 2018-04-16 09:06 | PDOC PROGRESS REPORT ---
Subjective Progress Note for:: 04/16/18 Subjective:: Patient states her pain has been controlled. Denies fever chills or sweats. Major complaint is itching in her right hand. Denies numbness. Reason For Visit: L03.011 CELLULITIS OF RIGHT FINGER Physical Exam Vital Signs: Temp Pulse Resp BP Pulse Ox 98.1 F 73 18 100/52 L 97 04/15/18 23:53 04/15/18 23:53 04/15/18 19:12 04/15/18 23:53 04/15/18 23:53 Intake & Output 04/15/18 04/16/18 04/17/18 06:59 06:59 06:59 Intake Total 3172 Output Total 905 Balance 2267 Weight 52.16 kg Musculoskeletal exam: PRESENT: other - Right hand: Dressing clean/dry/intact. Intact flexion/extension of the DIP/PIP joints. Two-point discrimination 4 mm index through small finger. Cap refill less than 2 seconds. Results Laboratory Results: 04/16/18 05:28 04/16/18 05:28 04/15/18 04/15/18 04/15/18 10:15 10:26 10:26 WBC 6.1 RBC 4.79 Hgb 14.6 Hct 41.7 MCV 87 MCH 30.4 MCHC 34.9 RDW 13.3 Plt Count 298 Seg Neutrophils % Lymphocytes % Monocytes % Eosinophils % Basophils % Absolute Neutrophils Absolute Lymphocytes Absolute Monocytes Absolute Eosinophils Absolute Basophils Sodium 141.3 Potassium 4.5 Chloride 110 H Carbon Dioxide 25 Anion Gap 6 BUN 9 Creatinine 0.46 L Est GFR ( Amer) > 60 Est GFR (Non-Af Amer) > 60 Glucose 93 Calcium 9.4 Urine Color YELLOW Urine Appearance CLOUDY Urine pH 7.0 Ur Specific Spencer 1.011 Urine Protein NEGATIVE Urine Glucose (UA) NEGATIVE Urine Ketones NEGATIVE Urine Blood MODERATE H Urine Nitrite NEGATIVE Ur Leukocyte Esterase MODERATE H Urine WBC (Auto) 23 Urine RBC (Auto) 7 04/16/18 04/16/18 05:28 05:28 WBC 11.7 H RBC 4.19 Hgb 12.8 Hct 36.5 MCV 87 MCH 30.6 MCHC 35.0 RDW 13.4 Plt Count 277 Seg Neutrophils % 75.9 Lymphocytes % 16.7 Monocytes % 6.4 Eosinophils % 0.2 Basophils % 0.8 Absolute Neutrophils 8.9 H Absolute Lymphocytes 2.0 Absolute Monocytes 0.8 Absolute Eosinophils 0.0 Absolute Basophils 0.1 Sodium 139.7 Potassium 4.1 Chloride 109 H Carbon Dioxide 24 Anion Gap 7 BUN 7 Creatinine 0.38 L Est GFR ( Amer) > 60 Est GFR (Non-Af Amer) > 60 Glucose 118 H Calcium 9.3 Urine Color Urine Appearance Urine pH Ur Specific Spencer Urine Protein Urine Glucose (UA) Urine Ketones Urine Blood Urine Nitrite Ur Leukocyte Esterase Urine WBC (Auto) Urine RBC (Auto) Impressions: Chest X-Ray 04/15/18 00:00 IMPRESSION: 1. Interval resolution of left base pneumonia since the prior study dated 02/17/2018. 2. No acute pulmonary findings. Assessment & Plan - Diagnosis (1) Osteomyelitis of right hand Qualifiers: Osteomyelitis type: subacute Qualified Code(s): M86.241 - Subacute osteomyelitis, right hand Is this a current diagnosis for this admission?: Yes Plan: Postop day 1 status post irrigation and debridement right third MCP joint 1. Pain control with oxycodone patient has a Tylenol allergy 2. Benadryl for itching if patient's itching continues will consider altering antibiotics 3. Awaiting cultures. Pending on culture results patient may require 6 weeks of IV antibiotics versus p.o. antibiotics. Appreciate infectious disease input.
[2018-04-16] MEDS: MORPHINE SULFATE 10 MG/ML INJ IV PRN ×3 (09:10→23:17)
[2018-04-16] MEDS ORDERED: DIPHENHYDRAMINE HCL 25 MG CAPSULE ONE (09:15)
[2018-04-16] MEDS: LANSOPRAZOLE 30 MG TAB.RAP.DR PO SCH (13:02)
[2018-04-16] MEDS: OXYCODONE HCL IR 5 MG TABLET PO PRN ×2 (14:34→21:18)
[2018-04-16] MEDS: DIPHENHYDRAMINE HCL 25 MG CAPSULE PO PRN (17:58)
[2018-04-16] MEDS ORDERED: FAMOTIDINE INJ/PF 20 MG/2 ML SDV IV PRN (20:22)
[2018-04-17] MEDS: CEFEPIME 2 GM/D5W RTU 2 GM/50 ML RTUPB IV SCH ×2 (05:50→17:45)
[2018-04-17] MEDS: OXYCODONE HCL IR 5 MG TABLET PO PRN (05:50)
[2018-04-17] MEDS: HEPARIN SOD (PORCINE) 5,000 UNIT/ML 1 ML SYRINGE SUBCUT SCH ×3 (05:50→22:59)
[2018-04-17] MEDS: VANCOMYCIN HCL 1,250 MG in DEXTROSE 5%-WATER 250 ML IV SCH (06:35)
[2018-04-17 06:54] LABS: VANCOMYCIN,TROUGH 11.4 ug/mL (5.0-20.0)
[2018-04-17] MEDS: LANSOPRAZOLE 30 MG TAB.RAP.DR PO SCH (09:29)
[2018-04-17] MEDS: MORPHINE SULFATE 10 MG/ML INJ IV PRN ×2 (09:34→23:09)
[2018-04-17] MEDS: DIPHENHYDRAMINE HCL 25 MG CAPSULE PO PRN (09:40)
[2018-04-17] MEDS: VANCOMYCIN HCL 1,000 MG in DEXTROSE 5%-WATER 250 ML IV SCH ×2 (14:10→22:59)
--- NOTE | 2018-04-17 17:39 | PDOC PROGRESS REPORT ---
Subjective Progress Note for:: 04/17/18 Subjective:: Patient pain is better controlled. No fevers or chills overnight. Reason For Visit: OSTEOMYELITIS RIGHT HAND Physical Exam Vital Signs: Temp Pulse Resp BP Pulse Ox 37.0 C 67 12 93/57 L 100 04/17/18 16:20 04/17/18 16:20 04/17/18 16:20 04/17/18 16:20 04/17/18 16:20 Intake & Output 04/16/18 04/17/18 04/18/18 06:59 06:59 06:59 Intake Total 3172 1600 1780 Output Total 905 Balance 2267 1600 1780 Weight 52.16 kg 54.7 kg General appearance: PRESENT: no acute distress Head exam: PRESENT: atraumatic, normocephalic Back of Hands Image: 1 - Incision is dry clean and intact. Swelling appropriate with no drainage. Results Laboratory Results: 04/16/18 05:28 04/17/18 05:40 04/17/18 05:40 Creatinine 0.52 Est GFR ( Amer) > 60 Est GFR (Non-Af Amer) > 60 04/15/18 12:30 Biopsy AFB Smear Concentration - Final 04/15/18 12:30 Biopsy Acid Fast Bacilli Smear - Final 04/15/18 12:30 Finger - Right Middle Finger Fungal Smear - Final 04/15/18 12:30 Finger - Right Middle Finger Fungal Smear - Final 04/15/18 12:30 Biopsy AFB Smear Concentration - Final 04/15/18 12:30 Biopsy Acid Fast Bacilli Smear - Final 04/15/18 12:30 Finger - Right Middle Finger Fungal Smear - Final 04/15/18 12:30 Finger - Right Middle Finger Fungal Smear - Final Impressions: Chest X-Ray 04/15/18 00:00 IMPRESSION: 1. Interval resolution of left base pneumonia since the prior study dated 02/17/2018. 2. No acute pulmonary findings. Assessment & Plan - Diagnosis (1) Osteomyelitis of right hand Qualifiers: Osteomyelitis type: subacute Qualified Code(s): M86.241 - Subacute osteomyelitis, right hand Is this a current diagnosis for this admission?: Yes Plan: Continue IV antibiotics. Cultures pending. Recommendation from ID is to continue IV antibiotics until cultures are determined and permanent. Continue pain control.
[2018-04-18] MEDS: CEFEPIME 2 GM/D5W RTU 2 GM/50 ML RTUPB IV SCH ×2 (05:13→18:06)
[2018-04-18] MEDS: VANCOMYCIN HCL 1,000 MG in DEXTROSE 5%-WATER 250 ML IV SCH ×3 (06:05→22:07)
[2018-04-18] MEDS: HEPARIN SOD (PORCINE) 5,000 UNIT/ML 1 ML SYRINGE SUBCUT SCH ×3 (06:27→22:08)
[2018-04-18] MEDS: OXYCODONE HCL IR 5 MG TABLET PO PRN (08:10)
[2018-04-18] MEDS: LANSOPRAZOLE 30 MG TAB.RAP.DR PO SCH (10:56)
--- NOTE | 2018-04-18 16:25 | RADIOLOGY REPORT (SQ) ---
EXAM DESCRIPTION: PICC INSERTION; U/S GUIDE FOR VASCULAR ACCESS; FLUORO/CV PLACEMENT COMPLETED DATE/TIME: 04/18/2018 4:01 pm REASON FOR STUDY: IV Abx; IV ABX L03.011 CELLULITIS OF RIGHT FINGER COMPARISON: None. FLUOROSCOPY TIME: 27 seconds 3 images saved to PACS. TECHNIQUE: Fluoroscopic and ultrasound guided PICC placement. LIMITATIONS: None. PROCEDURE: After written consent and assessment were obtained, the patient was brought into the fluo roscopy room and placed supine on the table. Ultrasound evaluation of potential access sites were per formed. After successfully identifying a patent left basilic vein, the left arm was prepped and drape d in a sterile fashion along with the ultrasound probe. The entry site was anesthetized with 1% lidoc galina. A 21 gauge 7 cm needle was advanced through the skin and into the basilic vein under live ultra sound guidance. An ultrasound image was saved to PACS confirming access site. A .018 guide wire was then inserted through the needle and into the venous system. The needle was then removed and an 11 b lade scalpel was used to make a 1cm skin incision. A 5 fr peel-away sheath was advanced over the wir e and into the venous system. A measurement was then made using the existing wire and live fluoroscop ic guidance. The wire was then removed and trimmed. The PICC was advanced through the peel-away sheat h and into the venous system. The peel-away sheath was removed and the catheter was adhered to the pa tients arm with a stat lock. The catheter was then aspirated and flushed and a sterile bandage was pl aced over the access site. A fluoroscopic spot image was saved to PACS confirming the catheter tip w ithin the superior vena cava. IMPRESSION: SUCCESSFUL PLACEMENT OF A 5 FR DUAL LUMEN 45 CM PICC IN THE LEFT BASILIC VEIN. COMMENT: Patient medication list reviewed: Yes- Quality ID# [id number]:Eligible professional attests to doc umenting in the medical record they obtained, updated, or reviewed the patient's current medications. . Quality ID 145: Final reports for procedures using fluoroscopy that document radiation exposure galileo dimitry, or exposure time and number of fluorographic images (if radiation exposure indices are not avail able) Quality ID #76: The patient was prepped and draped using maximum sterile barrier technique including cap, mask, sterile gown, sterile gloves, a large sterile sheet, hand hygiene, and 2% Chlorhexidine fo r cutaneous antisepsis. When ultrasound is used, sterile ultrasound techniques are followed requiring sterile gel and sterile probes. TECHNICAL DOCUMENTATION: JOB ID: [id number] [employer]- All Rights Reserved rev-11/16 Reading location - IP/workstation name: [email or web address]
--- NOTE | 2018-04-18 16:25 | RADIOLOGY REPORT (SQ) ---
EXAM DESCRIPTION: PICC INSERTION; U/S GUIDE FOR VASCULAR ACCESS; FLUORO/CV PLACEMENT COMPLETED DATE/TIME: 04/18/2018 4:01 pm REASON FOR STUDY: IV Abx; IV ABX L03.011 CELLULITIS OF RIGHT FINGER COMPARISON: None. FLUOROSCOPY TIME: 27 seconds 3 images saved to PACS. TECHNIQUE: Fluoroscopic and ultrasound guided PICC placement. LIMITATIONS: None. PROCEDURE: After written consent and assessment were obtained, the patient was brought into the fluo roscopy room and placed supine on the table. Ultrasound evaluation of potential access sites were per formed. After successfully identifying a patent left basilic vein, the left arm was prepped and drape d in a sterile fashion along with the ultrasound probe. The entry site was anesthetized with 1% lidoc galina. A 21 gauge 7 cm needle was advanced through the skin and into the basilic vein under live ultra sound guidance. An ultrasound image was saved to PACS confirming access site. A .018 guide wire was then inserted through the needle and into the venous system. The needle was then removed and an 11 b lade scalpel was used to make a 1cm skin incision. A 5 fr peel-away sheath was advanced over the wir e and into the venous system. A measurement was then made using the existing wire and live fluoroscop ic guidance. The wire was then removed and trimmed. The PICC was advanced through the peel-away sheat h and into the venous system. The peel-away sheath was removed and the catheter was adhered to the pa tients arm with a stat lock. The catheter was then aspirated and flushed and a sterile bandage was pl aced over the access site. A fluoroscopic spot image was saved to PACS confirming the catheter tip w ithin the superior vena cava. IMPRESSION: SUCCESSFUL PLACEMENT OF A 5 FR DUAL LUMEN 45 CM PICC IN THE LEFT BASILIC VEIN. COMMENT: Patient medication list reviewed: Yes- Quality ID# [id number]:Eligible professional attests to doc umenting in the medical record they obtained, updated, or reviewed the patient's current medications. . Quality ID 145: Final reports for procedures using fluoroscopy that document radiation exposure galileo dimitry, or exposure time and number of fluorographic images (if radiation exposure indices are not avail able) Quality ID #76: The patient was prepped and draped using maximum sterile barrier technique including cap, mask, sterile gown, sterile gloves, a large sterile sheet, hand hygiene, and 2% Chlorhexidine fo r cutaneous antisepsis. When ultrasound is used, sterile ultrasound techniques are followed requiring sterile gel and sterile probes. TECHNICAL DOCUMENTATION: JOB ID: [id number] [employer]- All Rights Reserved rev-11/16 Reading location - IP/workstation name: [email or web address]
[2018-04-18] MEDS ORDERED: NORMAL SALINE 10 ML SDV (AFTER EACH USE) IV PRN (17:31)
[2018-04-18] MEDS: NORMAL SALINE 10 ML SDV (SCHEDULED) IV SCH (22:08)
[2018-04-19] MEDS: CEFEPIME 2 GM/D5W RTU 2 GM/50 ML RTUPB IV SCH ×2 (05:15→18:23)
[2018-04-19] MEDS: HEPARIN SOD (PORCINE) 5,000 UNIT/ML 1 ML SYRINGE SUBCUT SCH ×3 (05:36→21:47)
[2018-04-19] MEDS: VANCOMYCIN HCL 1,000 MG in DEXTROSE 5%-WATER 250 ML IV SCH ×3 (06:55→23:25)
[2018-04-19] MEDS: OXYCODONE HCL IR 5 MG TABLET PO PRN ×3 (07:18→20:42)
[2018-04-19 07:37] LABS: VANCOMYCIN,TROUGH 14.7 ug/mL (5.0-20.0)
[2018-04-19] MEDS: NORMAL SALINE 10 ML SDV (SCHEDULED) IV SCH ×2 (11:35→23:26)
[2018-04-19] MEDS: LANSOPRAZOLE 30 MG TAB.RAP.DR PO SCH (11:35)
--- NOTE | 2018-04-19 17:17 | PDOC PROGRESS REPORT ---
Subjective Progress Note for:: 04/19/18 Subjective:: Patient states her pain has been controlled. Has begun range of motion as recommended but still has difficulty making full fist. Denies numbness or tingling. Denies fever or chills. Reason For Visit: OSTEOMYELITIS RIGHT HAND Physical Exam Vital Signs: Temp Pulse Resp BP Pulse Ox 98.0 F 67 18 114/84 100 04/19/18 07:40 04/19/18 07:40 04/19/18 07:40 04/19/18 07:40 04/19/18 07:40 Intake & Output 04/18/18 04/19/18 04/20/18 06:59 06:59 06:59 Intake Total 2380 1550 250 Balance 2380 1550 250 Weight 54.4 kg 54.4 kg Musculoskeletal exam: PRESENT: other - Right Hand: Incision healing no erythema/ drainage. intact MP/IP flexion/extension. 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 No sensory deficits. Results Laboratory Results: 04/16/18 05:28 04/19/18 06:45 04/19/18 06:45 Creatinine 0.43 L Est GFR ( Amer) > 60 Est GFR (Non-Af Amer) > 60 04/15/18 12:30 Finger - Right Middle Finger Gram Stain - Final 04/15/18 12:30 Finger - Right Middle Finger Wound Culture - Final NO AEROBIC OR ANAEROBIC ORGANISMS RECOVERED 04/15/18 12:30 Finger - Right Middle Finger Gram Stain - Final 04/15/18 12:30 Finger - Right Middle Finger Wound Culture - Final NO AEROBIC OR ANAEROBIC ORGANISMS RECOVERED Impressions: Chest X-Ray 04/15/18 00:00 IMPRESSION: 1. Interval resolution of left base pneumonia since the prior study dated 02/17/2018. 2. No acute pulmonary findings. Guidance Fluoroscopy 04/18/18 00:00 IMPRESSION: SUCCESSFUL PLACEMENT OF A 5 FR DUAL LUMEN 45 CM PICC IN THE LEFT BASILIC VEIN. Interventional Vascular Procedure 04/18/18 00:00 IMPRESSION: SUCCESSFUL PLACEMENT OF A 5 FR DUAL LUMEN 45 CM PICC IN THE LEFT BASILIC VEIN. PICC Line Insertion 04/18/18 00:00 IMPRESSION: SUCCESSFUL PLACEMENT OF A 5 FR DUAL LUMEN 45 CM PICC IN THE LEFT BASILIC VEIN. Assessment & Plan - Diagnosis (1) Osteomyelitis of right hand Qualifiers: Osteomyelitis type: subacute Qualified Code(s): M86.241 - Subacute osteomyelitis, right hand Is this a current diagnosis for this admission?: Yes Plan: Postop day 1 status post irrigation and debridement right third MCP joint Cultures have been finalized and negative at this point awaiting infectious disease recommendations for discharge home likely will require 4 weeks - 6 weeks of IV antibiotics. Overall patient is doing well clinically.
--- NOTE | 2018-04-19 19:01 | Progress Note ---
Provider Note Provider Note: ID Consult Follow Up Note Pt not seen or examined. Discussed briefly with Dr Mimi Nguyen via telephone. My colleague Dr Love also spoke with Dr Foster via telephone. Ms Hurt had been clinically suspected of having septic arthritis and osteomyelitis involving her R 3rd finger about the MCP joint and proximal phalanx and metacarpal head, following a cut to the finger and subsequent cellulitis. MRI was abnormal. She was not taking antibiotics for a week before debridement of the finger. Pathology report returned with no evidence of acute osteomyelitis in the submitted specimen. Bacterial Gram stain showed no typical bacterial and anaerobic/aerobic bacterial cultures have been finalized as negative. AFB and fungal stains are negative but corresponding cultures are pending. It is unclear, given the above pathology and Gram stain and culture results, whether the patient has an infection or an inflammatory non-infectious process. No evidence for typical bacterial pathogens have been identified, but an atypical mycobacterial infection is still a consideration. A reasonable approach might be to discontinue PICC line and start azithromycin 500 mg daily PO plus doxycycline 100 mg BID PO and to continue for one week while awaiting cultures. Typically, rapid growing mycobacteria would start to show growth after about 4 days (certainly within a week) and a slower growing organism such as Mycobacterium marinum within 7-10 days. If cultures remain negative at that point, please feel free to contact us via the [facility] pharmacy to discuss further approaches to the case. Darin Land MD [facility] Infectious Diseases pager [phone]
[2018-04-19] MEDS: MORPHINE SULFATE 10 MG/ML INJ IV PRN (23:24)
[2018-04-20] MEDS: HEPARIN SOD (PORCINE) 5,000 UNIT/ML 1 ML SYRINGE SUBCUT SCH (05:11)
[2018-04-20] MEDS: VANCOMYCIN HCL 1,000 MG in DEXTROSE 5%-WATER 250 ML IV SCH (06:56)
[2018-04-20] MEDS: CEFEPIME 2 GM/D5W RTU 2 GM/50 ML RTUPB IV SCH (06:56)
[2018-04-20 08:09] VITALS: BP 94/71
[2018-04-20] MEDS: LANSOPRAZOLE 30 MG TAB.RAP.DR PO SCH (09:38)
[2018-04-20] MEDS: NORMAL SALINE 10 ML SDV (SCHEDULED) IV SCH (09:38)
[2018-04-20] MEDS: OXYCODONE HCL IR 5 MG TABLET PO PRN (11:06)
--- NOTE | 2018-04-30 07:43 | PDOC DISCHARGE SUMMARY ---
General - Admit/Disc Date/PCP Admission Date/Primary Care Provider: 04/15/18 12:51 ISIDORO VALADEZ, Discharge Date: 04/15/18 - Discharge Diagnosis (1) Osteomyelitis of right hand Is this a current diagnosis for this admission?: Yes - Additional Information Discharge Diet: Regular Discharge Activity: Balance Activity w/Rest, No Lifting Over 10 Pounds, No Lifting/Push/Pulling Prescriptions: Azithromycin 500 mg PO DAILY #10 tablet Doxycycline Monohydrate 100 mg PO BID #20 tablet Oxycodone HCl 5 mg PO Q6 PRN #25 tablet PRN Reason: Home Medications: Azithromycin 500 mg PO DAILY #10 tablet 04/19/18 Doxycycline Monohydrate 100 mg PO BID #20 tablet 04/19/18 Oxycodone HCl 5 mg PO Q6 PRN #25 tablet 04/19/18 History of Present Illness History of Present Illness: JARVIS ADAMES is a 47 year old female who sustained injury to her right hand. She is apparently continued to have redness and swelling was treated with antibiotics with some improvement but not complete resolution. Ultimately she failed to see progression and a MRI was ordered demonstrating possible septic arthritis/osteomyelitis of the proximal phalanx and metacarpal. At that point patient was sent to [place] for further evaluation and treatment. After discussing findings on MRI and concern of possible osteomyelitis decision was made to proceed with operative treatment. Hospital Course Hospital Course: On 04/15/18 patient underwent irrigation and debridement of the right third MCP joint. Intraoperative findings demonstrated softening of the proximal phalanx metacarpal consistent with possible osteomyelitis. Bone and soft tissue was sent to pathology and microbiology for anaerobic, aerobic, fungal and AFB. Infectious disease was consulted for further recommendations on antibiotics. Throughout the patient's hospital course her symptoms including pain did improve however microbiology and pathology continued to be negative. After discussing the case with infectious disease decision was made to proceed with placement on p.o. antibiotics for possible Mycobacterium infection. Patient was sent home on doxycycline and azithromycin. On 04/19/18 patient was orthopedically medically stable for discharge to home. Physical Exam Vital Signs: Temp Pulse Resp BP Pulse Ox 98.3 F 63 16 94/71 L 97 04/20/18 13:19 04/20/18 13:19 04/20/18 13:19 04/20/18 13:19 04/20/18 13:19 General appearance: PRESENT: no acute distress, well-developed, well-nourished Head exam: PRESENT: atraumatic, normocephalic Eye exam: PRESENT: conjunctiva pink, EOMI, PERRLA. ABSENT: scleral icterus Ear exam: PRESENT: normal external ear exam Mouth exam: PRESENT: moist, tongue midline Neck exam: PRESENT: full ROM. ABSENT: carotid bruit, JVD, lymphadenopathy, thyromegaly Cardiovascular exam: PRESENT: RRR. ABSENT: diastolic murmur, rubs, systolic murmur Pulses: PRESENT: normal dorsalis pedis pul, +2 pedal pulses bilateral Vascular exam: PRESENT: normal capillary refill GI/Abdominal exam: PRESENT: normal bowel sounds, soft. ABSENT: distended, guarding, mass, organolmegaly, rebound, tenderness Rectal exam: PRESENT: deferred Musculoskeletal exam: PRESENT: other - Right hand: Surgical incision well approximated no erythema or drainage. Residual swelling of the MCP joint. No pain with mid range of motion of the MCP joint pain with terminal flexion. No sensory deficits. No evidence of streaking erythema or lymphadenopathy Neurological exam: PRESENT: alert, awake, oriented to person, oriented to place , oriented to time, oriented to situation, CN II-XII grossly intact. ABSENT: motor sensory deficit Psychiatric exam: PRESENT: appropriate affect, normal mood. ABSENT: homicidal ideation, suicidal ideation Skin exam: PRESENT: dry, intact, warm. ABSENT: cyanosis, rash Results Laboratory Results: 04/16/18 05:28 04/19/18 06:45 Impressions: Chest X-Ray 04/15/18 00:00 IMPRESSION: 1. Interval resolution of left base pneumonia since the prior study dated 02/17/2018. 2. No acute pulmonary findings. Guidance Fluoroscopy 04/18/18 00:00 IMPRESSION: SUCCESSFUL PLACEMENT OF A 5 FR DUAL LUMEN 45 CM PICC IN THE LEFT BASILIC VEIN. Interventional Vascular Procedure 04/18/18 00:00 IMPRESSION: SUCCESSFUL PLACEMENT OF A 5 FR DUAL LUMEN 45 CM PICC IN THE LEFT BASILIC VEIN. PICC Line Insertion 04/18/18 00:00 IMPRESSION: SUCCESSFUL PLACEMENT OF A 5 FR DUAL LUMEN 45 CM PICC IN THE LEFT BASILIC VEIN. Qualifiers - * PATIENT BEING DISCHARGED WITH ANY OF THE FOLLOWING DIAGNOSIS: No Plan Discharge Plan: Patient is to continue daily dressing changes and begin range of motion including active and passive motion of the MCP, PIP and DIP joints. She was sent home on p.o. azithromycin doxycycline as per infectious disease recommendation. She will follow-up the office with me in 2 weeks for recheck. She should call with any questions or concerns or increasing redness, swelling, pain or temperature greater than 1 1.5. Patient was read above instructions understood above instructions and was orthopedically stable for discharge to home.
== END 2018-04-20 13:15 | disposition home or self-care (01) | DRG 514 ==
LOC: OROUT 10:00 → 4N 12:51
PROVIDERS: ADMIT Orthopaedic Surgery; ATTEND Orthopaedic Surgery
PROC: 0RBU0ZZ Excision of Right Metacarpophalangeal Joint, Open Approach (ICD-10-PCS; principal; 2018-04-15 12:15)
PROC: 02HV33Z Insertion of Infusion Device into Superior Vena Cava, Percutaneous Approach (ICD-10-PCS; 2018-04-18)
PROC: B548ZZA Ultrasonography of Superior Vena Cava, Guidance (ICD-10-PCS; 2018-04-18)
PROC: B518ZZA Fluoroscopy of Superior Vena Cava, Guidance (ICD-10-PCS; 2018-04-18)
DX: M86.241 Subacute osteomyelitis, right hand (principal); Z90.49 Acquired absence of other specified parts of digestive tract; Z90.710 Acquired absence of both cervix and uterus
CPT/HCPCS: 1830; 36415; 36569; 71045; 76937; 77001; 80048; 80202; 81001; 82565; 85025; 85027; 87015; 87070; 87075; 87101; 87116; 87205; 87206; 88305; 93005; 93010; J0692; J1100; J1200; J1642; J1644; J2250; J2270; J2405; J2704; J3010; J3370; J3490; J7060; S0028

== ENCOUNTER → 2018-05-03 | Outpatient (CLI) | payer OTHER ==
[2018-05-03 14:16] LABS: ABSOLUTE BASOPHILS # (AUTO) 0.1 10^3/uL (0.0-0.2); ABSOLUTE EOSINOPHILS # (AUTO) 0.1 10^3/uL (0.0-0.6); ABSOLUTE LYMPHOCYTES (AUTO) 3.2 10^3/uL (0.5-4.7); ABSOLUTE MONOCYTES (AUTO) 0.4 10^3/uL (0.1-1.4); ABSOLUTE NEUT (AUTO) 3.8 10^3/uL (1.7-8.2); BASOPHILS % (AUTO) 0.7 % (0-2); EOSINOPHILS % (AUTO) 1.2 % (0-6); HEMATOCRIT 40.8 % (36.0-47.0); HEMOGLOBIN 14.8 g/dL (12.0-15.5); LYMPHOCYTES % (AUTO) 42.1 % (13-45); MEAN CORPUSCULAR HEMOGLOBIN 31.3 pg (27.0-33.4); MEAN CORPUSCULAR HGB CONC 36.2 g/dL (32.0-36.0); MEAN CORPUSCULAR VOLUME 87 fl (80-97); MONOCYTES % (AUTO) 5.9 % (3-13); PLATELET COUNT 304 10^3/uL (150-450); RED BLOOD COUNT 4.72 10^6/uL (3.72-5.28); RED CELL DISTRIBUTION WIDTH 13.4 % (11.5-14.0); SEGMENTED NEUTROPHILS % (AUTO) 50.1 % (42-78); TOTAL CELLS COUNTED % (AUTO) 100 %; WHITE BLOOD COUNT 7.6 10^3/uL (4.0-10.5)
[2018-05-03 14:57] LABS: ERYTHROCYTE SEDIMENTATION RATE 8 mm/hr (0-20)
[2018-05-03 17:14] LABS: URIC ACID 4.2 mg/dL (2.5-7.5)
[2018-05-03 17:19] LABS: C-REACTIVE PROTEIN < 5.0 mg/L (<10.0)
[2018-05-06 07:16] LABS: CYCLIC CITRUL PEPTIDE IGG/A AB 7 units (0-19)
== END ==
LOC: OD 12:37
PROVIDERS: ATTEND Orthopaedic Surgery
DX: M86.9 Osteomyelitis, unspecified (principal); M79.641 Pain in right hand; M25.50 Pain in unspecified joint
CPT/HCPCS: 36415; 84550; 85025; 85652; 86038; 86140; 86200; 86430

== ENCOUNTER 2019-12-31 11:56 | Emergency (ER) | payer OTHER ==
[2019-12-31] MEDS ORDERED: KETOROLAC TROMETHAMINE INJ/PF 30 MG/1 ML SDV IV ONE (12:35)
[2019-12-31] MEDS ORDERED: ONDANSETRON HCL INJ/PF 4 MG/2 ML SDV IV ONE (12:35)
--- NOTE | 2019-12-31 12:37 | ER Document Report ---
ED Medical Screen (RME) - General Chief Complaint: Back Pain Stated Complaint: LOW BACK PAIN,ABDOMINAL PAIN Time Seen by Provider: 12/31/19 12:33 Primary Care Provider: ISIDORO VALADEZ DO [Primary Care Provider] - Follow up as needed Notes: HPI: 49-year-old female with prior history of cholecystectomy but also kidney stones presenting with sudden onset of right flank pain with nausea vomiting this morning. She states pain is worse when she moves but also then states that she cannot find a position of comfort. Patient states the pain seems more focused in the right posterior low back region and seems to radiate around into the front right groin region. Denies hematuria. states that the pain began very suddenly PHYSICAL EXAMINATION: Moderate distress from pain. Mild right CVA tenderness. Mild tenderness to the right flank and right lower abdomen on palpation. No tenderness in the left abdomen on palpation I have greeted and performed a rapid initial assessment of this patient. A comprehensive ED assessment and evaluation of the patient, analysis of test results and completion of medical decision making process will be conducted by an additional ED providers. TRAVEL OUTSIDE OF THE [place] IN LAST 30 DAYS: No - Related Data Allergies/Adverse Reactions: acetaminophen [From Tylenol] Allergy (Verified 04/12/18 14:54) Past Medical History - Past Medical History Cardiac Medical History: Denies: Hx Coronary Artery Disease, Hx Heart Attack, Hx Hypertension Pulmonary Medical History: Denies: Hx Asthma, Hx Bronchitis, Hx COPD, Hx Pneumonia Neurological Medical History: Reports: Hx Migraine. Denies: Hx Cerebrovascular Accident, Hx Seizures Endocrine Medical History: Denies: Hx Diabetes Mellitus Type 2 Renal/ Medical History: Denies: Hx Peritoneal Dialysis GI Medical History: Denies: Hx Gastroesophageal Reflux Disease Musculoskeltal Medical History: Denies Hx Arthritis, Reports Hx Fibromyalgia, R eports Hx Musculoskeletal Trauma Psychiatric Medical History: Reports: Hx Anxiety, Hx Depression Past Surgical History: Reports: Hx Cholecystectomy, Hx Hysterectomy, Hx Orthopedic Surgery - right knee - Immunizations Immunizations up to date: Yes Hx Diphtheria, Pertussis, Tetanus Vaccination: No Physical Exam - Vital signs Vitals: Temp Pulse Resp BP Pulse Ox 98.6 F 73 20 163/95 H 98 12/31/19 12:11 12/31/19 12:11 12/31/19 12:11 12/31/19 12:11 07/01/20 12:11 Course - Vital Signs Vital signs: Temp Pulse Resp BP Pulse Ox 98.6 F 73 20 163/95 H 98 12/31/19 12:11 12/31/19 12:11 12/31/19 12:11 12/31/19 12:11 12/31/19 12:11 Doctor's Discharge - Discharge Referrals: ISIDORO VALADEZ DO [Primary Care Provider] - Follow up as needed
[2019-12-31] MEDS ORDERED: ONDANSETRON 4 MG TAB.RAPDIS PO ONE (12:48)
[2019-12-31] MEDS ORDERED: KETOROLAC TROMETHAMINE 60 MG/2 ML SDV IM ONE (12:48)
[2019-12-31 13:06] LABS: ABSOLUTE EOSINOPHILS # (AUTO) 0.1 10^3/uL (0.0-0.6); ABSOLUTE LYMPHOCYTES (AUTO) 1.6 10^3/uL (0.5-4.7); ABSOLUTE NEUT (AUTO) 15.2 10^3/uL (1.7-8.2); BASOPHILS % (AUTO) 0.3 % (0-2); EOSINOPHILS % (AUTO) 0.4 % (0-6); HEMATOCRIT 44.2 % (36.0-47.0); HEMOGLOBIN 15.5 g/dL (12.0-15.5); LYMPHOCYTES % (AUTO) 8.8 % (13-45); MEAN CORPUSCULAR HEMOGLOBIN 30.5 pg (27.0-33.4); MEAN CORPUSCULAR VOLUME 87 fl (80-97); MONOCYTES % (AUTO) 5.6 % (3-13); PLATELET COUNT 285 10^3/uL (150-450); RED BLOOD COUNT 5.07 10^6/uL (3.72-5.28); RED CELL DISTRIBUTION WIDTH 12.8 % (11.5-14.0); SEGMENTED NEUTROPHILS % (AUTO) 84.9 % (42-78); TOTAL CELLS COUNTED % (AUTO) 100 %; WHITE BLOOD COUNT 17.9 10^3/uL (4.0-10.5)
--- NOTE | 2019-12-31 13:15 | RADIOLOGY REPORT (SQ) ---
EXAM DESCRIPTION: CT ABD/PELVIS NO ORAL OR IV IMAGES COMPLETED DATE/TIME: 12/31/2019 12:56 pm REASON FOR STUDY: right flank pain/poss kidney stone COMPARISON: None. TECHNIQUE: CT scan of the abdomen and pelvis performed without intravenous or oral contrast. Images reviewed with lung, soft tissue, and bone windows. Reconstructed coronal and sagittal MPR images revi ewed. All images stored on PACS. All CT scanners at this facility use dose modulation, iterative reconstruction, and/or weight based d osing when appropriate to reduce radiation dose to as low as reasonably achievable (ALARA). [facility]: Dose Right [facility]: CareDose [facility]: Dose Right [facility]: Teradose 4D [facility]: Smart Toldo RADIATION DOSE: CT Rad equipment meets quality standard of care and radiation dose reduction techniq ues were employed. CTDIvol: 5.0 mGy. DLP: 241 mGy-cm.mGy. LIMITATIONS: None. FINDINGS: LOWER CHEST: No significant findings. No nodules or infiltrates. NON-CONTRASTED LIVER, SPLEEN, ADRENALS: Liver looks enlarged, just under 20 cm craniocaudal but witho ut mass. Spleen unremarkable. No adrenal mass. PANCREAS: No masses. No peripancreatic inflammatory changes. GALLBLADDER: Surgically absent. RIGHT KIDNEY AND URETER: Marked hydronephrosis. Dilated ureter to the level of a stone in the right hemipelvis. Stone measures 3 mm in transverse dimension, 4 mm craniocaudal. The renal pelvis is dil ated and there may be another tiny calcification dependently at the UPJ, see coronal series 601, imag e 41/ 65. Additional tiny nonobstructing renal collecting system stones. LEFT KIDNEY AND URETER: Numerous collecting system stones without obstruction. Hounsfield units clos e to 1,200. AORTA AND RETROPERITONEUM: No aneurysm. No retroperitoneal masses or adenopathy. BOWEL AND PERITONEAL CAVITY: No obvious masses or inflammatory changes. No free fluid. APPENDIX: Normal. PELVIS, BLADDER, AND ABDOMINAL WALL:No abnormal masses. No free fluid. Bladder normal. BONES: No significant findings. OTHER: No other significant finding. IMPRESSION: 1. Severe right hydronephrosis and hydroureter related to a distal stone as described. 2. Other findings as noted. There are numerous additional bilateral renal calculi with no left obstr uction appreciated. TECHNICAL DOCUMENTATION: JOB ID: [id number] Quality ID # [id number]: Final reports with documentation of one or more dose reduction techniques (e.g., Au tomated exposure control, adjustment of the mA and/or kV according to patient size, use of iterative reconstruction technique) 2010 [employer]- All Rights Reserved Reading location - IP/workstation name: [email or web address]
[2019-12-31 13:17] LABS: APPEARANCE,URINE SLIGHTLY-CLOUDY; BILIRUBIN,URINE NEGATIVE (NEGATIVE); CALCIUM OXALATE CRYSTALS,URINE FEW /HPF; COLOR,URINE YELLOW; GLUCOSE, URINE NEGATIVE (NEGATIVE); KETONES,URINE NEGATIVE (NEGATIVE); LEUKOCYTE ESTERASE,URINE SMALL (NEGATIVE); NITRITE,URINE NEGATIVE (NEGATIVE); PROTEIN,URINE NEGATIVE (NEGATIVE); URINE SPECIFIC GRAVITY 1.013; UROBILINOGEN,URINE NEGATIVE mg/dL (<2.0)
[2019-12-31 13:24] LABS: ALBUMIN 4.6 g/dL (3.5-5.0); ALKALINE PHOSPHATASE 98 U/L (38-126); ANION GAP 6 (5-19); ASPARTATE AMINO TRANSFERASE 35 U/L (14-36); BILIRUBIN,TOTAL 0.7 mg/dL (0.2-1.3); BLOOD UREA NITROGEN 16 mg/dL (7-20); CALCIUM 9.5 mg/dL (8.4-10.2); CARBON DIOXIDE 25 mmol/L (22-30); CHLORIDE 107 mmol/L (98-107); GLUCOSE 109 mg/dL (75-110); TOTAL PROTEIN 7.3 g/dL (6.3-8.2)
[2019-12-31 16:32] VITALS: BP 109/72
--- NOTE | 2019-12-31 16:37 | ER Document Report ---
Entered by BRUNILDA BEST SCRIBE 12/31/19 1553 Acting as scribe for:FEMI FIGUEROA MD ED GI/ - General Chief Complaint: Flank Pain Stated Complaint: LOW BACK PAIN,ABDOMINAL PAIN Time Seen by Provider: 12/31/19 12:33 Primary Care Provider: [facility] [Provider Group] - Follow up as needed ISIDORO VALADEZ DO [Primary Care Provider] - Follow up as needed Mode of Arrival: Ambulatory Information source: Patient Notes: This 49-year-old female patient presents to the emergency department today with complaints of right-sided flank pain which began this morning. Patient has had associated nausea and vomiting as well. Patient states that the last time she passed a kidney stone was in the year 1999 while she was living in [place]. Patient mentions that at that time she had to have lithotripsy with stent placement. TRAVEL OUTSIDE OF THE [place] IN LAST 30 DAYS: No - Related Data Allergies/Adverse Reactions: acetaminophen [From Tylenol] Allergy (Verified 04/12/18 14:54) Past Medical History - General Information source: Patient - Social History Smoking Status: Current Every Day Smoker Cigarette use (# per day): Yes - 1/2 ppd Chew tobacco use (# tins/day): No Frequency of alcohol use: None Drug Abuse: None Occupation: [employer] Lives with: Family Family History: Reviewed & Not Pertinent Neurological Medical History: Reports: Hx Migraine Renal/ Medical History: Reports: Hx Kidney Stones Musculoskeletal Medical History: Reports Hx Fibromyalgia, Reports Hx Musculoskeletal Trauma Psychiatric Medical History: Reports: Hx Anxiety, Hx Depression Past Surgical History: Reports: Hx Cholecystectomy, Hx Hysterectomy, Hx Orthopedic Surgery - right knee, Other - Lithotripsy with stent placement - Immunizations Immunizations up to date: Yes Hx Diphtheria, Pertussis, Tetanus Vaccination: No Review of Systems - Review of Systems Constitutional: No symptoms reported EENT: No symptoms reported Cardiovascular: No symptoms reported Respiratory: No symptoms reported Gastrointestinal: See HPI, Nausea, Vomiting Genitourinary: See HPI, Flank pain Female Genitourinary: No symptoms reported Musculoskeletal: No symptoms reported Skin: No symptoms reported Hematologic/Lymphatic: No symptoms reported Neurological/Psychological: No symptoms reported -: Yes All other systems reviewed and negative Physical Exam - Vital signs Vitals: Temp Pulse Resp BP Pulse Ox 98.6 F 73 20 163/95 H 98 12/31/19 12:11 12/31/19 12:11 12/31/19 12:11 12/31/19 12:11 12/31/19 12:11 - Notes Notes: Physical Exam: General: Alert, appears well. HEENT: Normocephalic. Atraumatic. PERRL. Extraocular movements intact. Oropharynx clear. Neck: Supple. Non-tender. Respiratory: No respiratory distress. Clear and equal breath sounds bilaterally. Cardiovascular: Regular rate and rhythm. Abdominal: Mild right lower quadrant tenderness with palpation. No distension. Normal Bowel Sounds. Back: Right CVA tenderness to percussion. No gross abnormalities. Extremities: Moves all four extremities. Upper extremities: Normal inspection. Normal ROM. Lower extremities: Normal inspection. No edema. Normal ROM. Neurological: Normal cognition. AAOx4. Normal speech. Psychological: Normal affect. Normal Mood. Skin: Warm. Dry. Normal color. Course - Re-evaluation Re-evalutation: 12/31/19 16:37 Patient blood pressure was elevated at triage, but in the room where she is comfortable it is normal. - Vital Signs Vital signs: Temp Pulse Resp BP Pulse Ox 98.6 F 60 16 109/72 100 12/31/19 16:31 12/31/19 16:31 12/31/19 16:31 12/31/19 16:31 12/31/19 16:31 - Laboratory Result Diagrams: 12/31/19 12:43 12/31/19 12:43 Laboratory results interpreted by me: 12/31/19 12/31/19 12:40 12:43 WBC 17.9 H Lymph % (Auto) 8.8 L Absolute Neuts (auto) 15.2 H Seg Neutrophils % 84.9 H Urine Blood LARGE H Ur Leukocyte Esterase SMALL H - Diagnostic Test Radiology reviewed: Image reviewed, Reports reviewed - 3 x 4 mm right distal ureteral stone with hydronephrosis Discharge - Discharge Clinical Impression: Ureteral stone with hydronephrosis Condition: Stable Disposition: HOME, SELF-CARE Additional Instructions: Kidney Stone You are passing or have passed a kidney stone. These stones are usually due to increased calcium or uric acid concentrations in your urine. Stones within the kidney itself are not painful. The pain occurs as the stone leaves the kidney to pass down the long tube, called the ureter, leading to the bladder. If the stone is small, it will usually pass by itself. Most patients can pass the stone at home. You will usually receive medications for pain, nausea or vomiting, and sometimes a medication to assist in passing the kidney stone. However, if the pain is very severe or if vomiting prevents you from taking oral pain medications, you may need to return for further treatment. Drink three or four quarts of fluids per day. You will be given pain medication (if needed) and urine strainers. Strain all your urine to see if the stone passes. If your doctor has asked you to bring the stone in for analysis, return with the stone once it has passed. Return if pain or vomiting become severe, if you develop a high fever, if you are unable to pass your urine, or if other unusual symptoms occur. You have a 3 x 4 mm stone in the lower right ureter causing hydronephrosis. The urinalysis had some white blood cells in it which are likely reactive, but could possibly be due to infection. You will be placed on Flomax once daily, that medication is thought to improve the chances of passing a stone. You will also be placed on Cipro which is an antibiotic in case there is an infection in the urine. Oxycodone is prescribed for pain. You should also take ibuprofen 600 mg every 8 hours to help reduce pain. Drink plenty of fluids. Strain your urine. Follow-up with your primary care provider or [facility] if not improving, or if the stone does not pass. RETURN TO THE EMERGENCY ROOM IF ANY NEW OR WORSENING SYMPTOMS. Prescriptions: Ciprofloxacin HCl [Cipro 500 mg Tablet] 500 mg PO BID #14 tablet Tamsulosin HCl [Flomax 0.4 mg Cap.sr] 0.4 mg PO DAILY #7 cap.sr.24h Oxycodone HCl [Oxy-Ir 5 mg Tablet] 5 mg PO ASDIR PRN #15 tablet PRN Reason: Forms: Return to Work Referrals: ISIDORO VALADEZ DO [Primary Care Provider] - Follow up as needed [facility] [Provider Group] - Follow up as needed I personally performed the services described in the documentation, reviewed and edited the documentation which was dictated to the scribe in my presence, and it accurately records my words and actions.
== END 2019-12-31 16:47 | disposition home or self-care (01) ==
LOC: ER 11:56
DX: N13.2 Hydronephrosis with renal and ureteral calculous obstruction (principal); R10.9 Unspecified abdominal pain; M54.5 Low back pain; F17.210 Nicotine dependence, cigarettes, uncomplicated; Z87.442 Personal history of urinary calculi; Z90.710 Acquired absence of both cervix and uterus
CPT/HCPCS: 99284; 96372; 36415; 87086; 83690; 85025; 80053; 81001; 74176; J1885; S0119